=== PATIENT | male | born 1955 | race Hispanic/Latino ===

== ENCOUNTER → 2018-07-18 | Day surgery (SDC) | payer MEDICARE, OTHER ==
[~2018-07-18] MED LIST: ACIDOPHILUS100 MG PO; ALENDRONATE SOD70 MG PO; ALLOPURINOL100 MG PO; CENTRUM SILVER1 EAC3 PO; CEPHALEXIN500 MG PO; CITRACAL + D M1 EACH PO; DIALYVITE50000 UNIT PO; FENTANYL CITRATE/PF 100MCG/2 ML INJ ONE; FUROSEMIDE40 MG PO; HYOSCYAMINE SULFATE 0.5 MG/ML INJ ONE; KETAMINE HCL INJ 50 MG/ML 10 ML VIAL ONE; KLOR-CON 88 MEQ PO; MIDAZOLAM HCL 2 MG/2 ML VIAL ONE; PANTOPRAZOLE SO40 MG PO; PHENYLEPHRINE HCL 1% 10 MG/ML VIAL ONE; PROBIOTIC PO; PROPOFOL IV EMULSION 10 MG/ML 20 ML VIAL ONE; SPIRONOLACTONE25 MG PO; VITAMIN D-3 PO; Z.0.LIPITOR10 MG; Z.0.LOSARTAN POTAS10 PO; Z.4.AMLODIPINE-BEN1; [UNRECOGNIZED DRUG - OTHER] PO
--- OUTSIDE RECORDS SUMMARY | 2018-07-18 08:20 | XMS REPORT ---
Author Author [facility] Address Unknown Phone Unavailable Care Team Providers Care Grease Man Name Role Phone MICHELLE CHRISTIAN Unavailable Unavailable Problems This patient has no known problems. Allergies, Adverse Reactions, Alerts This patient has no known allergies or adverse reactions. Medications This patient has no known medications. Results Test Description Test Time Test Comments Text Results Atomic Results Result Comments SINUSES (PARANASAL)MIN 3VIEWS [place] [address] Patient Name: LASHAWN REEVES MR #: [id number] : 1955 Age/Sex: 61/M Req #: [id number] [facility] Physician: Ordered by: MICHELLE ROMERO, CHRISTIAN Álvarez MD Report #: [id number] Location: [facility] Room/Bed: Procedure: [id number] DX/SINUSES (PARANASAL)MIN 3VIEWS Exam Date: 06/05/17 Exam Time: 1425 REPORT STATUS: Signed PROCEDURE: X-RAY PARANASAL SINUSES, COMPLETE COMPARISON: None. INDICATIONS: SINUS CONGESTION FINDINGS: There is an air-fluid level in the left maxillary sinus. No expansile or destructive osseous lesions are seen. No evidence of fracture. CONCLUSION: Left maxillary sinusitis. Nguyen Davis D.O. Dictated by: Nguyen Davis D.O. on 06/05/2017 at 16:19 Electronically approved by: Nguyen Davis D.O. on 06/05/2017 at 16:19 Dictated By: NGUYEN DAVIS DO 18 Transcribed By: CHARANJIT on 06/05/171618 COPY TO: CHRISTIAN MARTINEZ CHEST 2 VIEWS [place] [address] Patient Name: LASHAWN REEVES MR #: [id number] : 1955 Age/Sex: 61/M Req #: [id number] Adm Physician: Ordered by: CHRISTIAN MARTINEZ MD, MD Report #: [id number] Location: [facility] Room/Bed: Procedure: [id number] DX/CHEST 2 VIEWS Exam Date: 05/04/17 Exam Time: 0850 REPORT STATUS: Signed PROCEDURE: Frontal and lateral views of the chest. COMPARISON: Portable chest 05/30/2016. INDICATIONS: BRONCHITIS, COUGH FINDINGS: Lines/tubes: None. Lungs: The lungs are well inflated and clear. There is no evidence of pneumonia or pulmonary edema. Pleura: There is no pleural effusion or pneumothorax. Heart and mediastinum: The heart and the mediastinum are normal. Bones: No acute bony abnormality. Degenerative changes of the thoracic spine. IMPRESSION: No acute radiographic abnormality. Dictated by: Arnulfo Cabral M.D. on 05/04/2017 at 9:22 Electronically approved by: Arnulfo Cabral M.D. on 05/04/2017 at 9:22 Dictated By: ARNULFO CABRAL MD 1 Transcribed By: CHARANJIT on 05/04/17921 COPY TO: CHRISTIAN MARTINEZ
--- OUTSIDE RECORDS SUMMARY | 2018-07-18 08:20 | XMS REPORT | Continuity of Care Document ---
Author Author Shadia mandeep [facility] Address Unknown Phone Unavailable Problems Problem Status Onset Date Classification Date Reported Comments Source M81.0 - AGE-RELATED OSTEOPOROSIS W/O C Active 12/12/2016 [facility] 786.51 Active 06/19/2014 [facility] PRECORDIAL PAIN Active [facility] Medications Medication Details Route Status Patient Instructions Ordering Provider Order Date Source Allergies, Adverse Reactions, Alerts Substance Category Reaction Severity Reaction type Status Date Reported Comments Source Immunizations Immunization Date Given Site Status Last Updated Comments Source Results Order Name Results Value Reference Range Date Interpretation Comments Source Bone Density DXA Dual Energy MA Bone Density DXA Dual Energy MA - Bone Density DXA Dual Energy MA MALE BONE DENSITY EVALUATION: 12/21/2016 CLINICAL DATA: M81.0 screening for osteoporosis. FINDINGS: Bone density evaluation was performed 12/21/2016 on the AP L1-L4 region of spine using a Hologic unit. The BMD average for the exam is 0.992 g/cm2. The T-score is -0.90 and the Z-score is -0.20. This matches the World Health Organization's criteria for normal bone density and places the patient within normal limits of fracture risk. An additional bone density evaluation was performed 12/21/2016 on the right femur neck using a Hologic unit. The BMD average for the exam is 0.929 g/cm2. The Z-score is 1.00. Complete risk assessment of this region was not determined. An additional bone density evaluation was performed 12/21/2016 on the right total femur area using a Hologic unit. The BMD average for the exam is 0.929 g/cm2. The T-score is -0.70 and the Z-score is -0.20. This matches the World Health Organization's criteria for normal bone density and places the patient within normal limits of fracture risk. An additional bone density evaluation was performed 12/21/2016 on the left femur neck using a Hologic unit. The BMD average for the exam is 0.937 g/cm2. The T- score is 0.10 and the Z-score is 1.00. This matches the World Health Organization's criteria for normal bone density and places the patient within normal limits of fracture risk. An additional bone density evaluation was performed 12/21/2016 on the left total femur area using a Hologic unit. The BMD average for the exam is 0.879 g/cm2. The T-score is -1.00 and the Z-score is -0.50. This matches the World Health Organization's criteria for normal bone density and places the patient within normal limits of fracture risk. IMPRESSION: BONE DENSITY WITHIN NORMAL LIMITS Patient is at normal risk for fracture. According to current 2013 ISCD guidelines, T-scores are preferred for evaluation of bone mineral density of males ages 50 and older. Professional services are provided by the [facility] Diagnostic Imaging. This exam was dictated and interpreted by [id number] at [facility]. Dmitry Giles M.D., jp/alon:12/22/2016 08:46:10 Bird Raiser: Shadia Munoz 12/21/2016 - - Read by: Dmitry Giles MD Dictated Date/time: 12/22/16 08:46 Electronically Signed by: Dmitry Giles MD 12/22/16 08:46 [facility] Cardiac SPECT multi studies NM Cardiac SPECT multi studies NM Cardiac SPECT study: TECHNIQUE: 33 millicuries of Technetium 99m Cardiolite were administered for the resting portion of the examination and 33 millicuries for the stress study utilizing a 2 day protocol. The patient was given a standard dose of 0.4 mg of IV Lexiscan for the stress portion of the study FINDINGS: The SPECT images demonstrate physiologic tracer activity. No significant fixed or reversible defect is evident. The left ventricle cavity is of normal size. CARDIAC PERFUSION STUDY: FINDINGS: The gated examination demonstrates no significant focal wall motion abnormality. The end-diastolic volume is estimated at 137 ml with end-systolic volume at 40 ml. The ejection fraction is calculated at 71% . IMPRESSION: No significant fixed or reversible defect is noted. SL:13 06/24/2014 - - Read by: Edmar Song MD Dictated Date/time: 06/25/14 11:07 Electronically Signed by: Edmar Song MD 06/25/14 11:09 FINAL REPORT [facility] Vital Signs Vital Sign Value Date Comments Source Height 167.64 cm 06/24/2014 [facility] Weight 150 06/24/2014 [facility] BMI Calculated 53.37 06/24/2014 [facility] Encounters Location Location Details Encounter Type Encounter Number Reason For Visit Attending Provider ADM Date DC Date Status Source [facility] Outpatient [id number] Pirce Roman 06/24/2014 06/25/2014 [facility] [id number] Hemalatha Patel 12/21/2016 12/22/2016 [facility] Procedures Procedure Code Date Perfomer Comments Source
--- OUTSIDE RECORDS SUMMARY | 2018-07-18 08:20 | XMS REPORT | Summary of Care ---
Author Author [facility] Outpatient Imaging [facility] [place] Address Unknown Phone Unavailable Encounter [facility] Eveline_alida([facility]) [id number] Date(s): 12/21/16 - 12/21/16 [facility] [place] [id number] [place] [address], [address] [place], [place] [id number]- [phone] Discharge Disposition: Home or Self Care Attending Physician: Hemalatha Patel MD Vital Signs No data available for this section Problem List No data available for this section Allergies, Adverse Reactions, Alerts Substance Reaction Severity Status NKDA Active Medications No data available for this section Results No data available for this section Immunizations No data available for this section Procedures No data available for this section Social History No data available for this section Assessment and Plan No data available for this section
--- OUTSIDE RECORDS SUMMARY | 2018-07-18 08:20 | XMS REPORT | Summary of Care ---
Author Organization Unknown Address Unknown Phone Unavailable Encounter [facility] Encntr_saekyle([facility]) [id number] Date(s): 06/24/14 - 06/24/14 [facility] [address] Discharge Disposition: Home Physician Attending: Price Roman MD Physician_Referring: Price Roman MD Reason for Visit 786.51 Vital Signs Most recent to 1 oldest [Reference Range]: Height 167.64 cm (06/24/14 9:24 AM) Weight 150 kg (06/24/14 9:24 AM) Body Mass Index 53.37 m2 (06/24/14 9:24 AM) Problem List No data available for this section Allergies, Adverse Reactions, Alerts Substance Reaction Severity Status NKDA Active Medications No data available for this section Medications Administered During Your Visit No data available for this section Immunizations No data available for this section
[2018-07-18 12:49] VITALS: BP 105/63
--- NOTE | 2018-07-18 14:35 | Operative Report ---
DATE OF PROCEDURE: July 18, 2018 REFERRING PHYSICIAN: Dr. Christian Martinez. PROCEDURE PERFORMED: Colonoscopy and polypectomy. INDICATIONS FOR COLONOSCOPY: Personal history of colon polyps. Surveillance colonoscopy. MEDICATION: Patient was done under MAC. Please see anesthesiologist's note. PROCEDURE: With the patient in the left lateral decubitus position, the flexible fiberoptic Olympus colonoscope was inserted into the rectum with ease and advanced all the way to the cecum. __Prep overall was suboptimal with retained stools in the colon. The scope was then withdrawn slowly, and whatever was visualized of the mucosa overlying the cecum, ascending colon and transverse grossly appeared to be within normal limits. The scope was then advanced with ease into the cecum.__ The scope was then withdrawn slowly, and no obvious obstructing or constricting lesions were noted in the cecum, ascending, transverse colon. One polyp was hot biopsied from the descending colon. The sigmoid and rectum grossly appeared to be within normal limits. The scope was then retroflexed into the distal rectum and small internal hemorrhoids were noted, none of which was actively bleeding. The scope was then straightened out. It was subsequently withdrawn. Patient tolerated the procedure well. IMPRESSION: 1. Suboptimal prep. 2. Descending colon polyp hot biopsied. 3. Internal hemorrhoids, none actively bleeding. PLAN: Follow up histology. Initiate high-fiber low-fat diet. Initiate high-fiber supplement. Patient might benefit from a followup colonoscopy in 2 to 3 years. Job#: [id number] EV cc:CHRISTIAN MARTINEZ MD
== END | disposition home or self-care (01) ==
LOC: OR 08:17
PROVIDERS: ATTEND Internal Medicine Gastroenterology
DX: Z09 Encounter for follow-up examination after completed treatment for conditions other than malignant neoplasm (principal); K63.5 Polyp of colon; K64.8 Other hemorrhoids; K59.00 Constipation, unspecified; K21.9 Gastro-esophageal reflux disease without esophagitis; J44.9 Chronic obstructive pulmonary disease, unspecified; I10 Essential (primary) hypertension; G47.33 Obstructive sleep apnea (adult) (pediatric); Z88.4 Allergy status to anesthetic agent; Z68.43 Body mass index [BMI] 50.0-59.9, adult; Z86.711 Personal history of pulmonary embolism
CPT/HCPCS: 45384; 88305; J1980; J2250; J2370; J2704; 45378

== ENCOUNTER → 2019-04-05 | Outpatient (CLI) | payer MEDICARE, OTHER ==
[~2019-04-05] MED LIST changes: -FENTANYL CITRATE/PF 100MCG/2 ML INJ ONE; -HYOSCYAMINE SULFATE 0.5 MG/ML INJ ONE; -KETAMINE HCL INJ 50 MG/ML 10 ML VIAL ONE; -MIDAZOLAM HCL 2 MG/2 ML VIAL ONE; -PHENYLEPHRINE HCL 1% 10 MG/ML VIAL ONE; -PROPOFOL IV EMULSION 10 MG/ML 20 ML VIAL ONE
--- NOTE | 2019-04-05 09:47 | Diagnostic Imaging Report ---
EXAMINATION: SP LUMBAR, COMPLETE MIN 4VW INDICATION: Back pain COMPARISON: None FINDINGS: No compression fracture. Vertebral body heights are well-maintained. Alignment is anatomic. Mild multilevel degenerative changes with disc space narrowing and small osteophyte formation. Mild lower lumbar spine facet arthropathy. Scattered atherosclerotic vascular calcifications. IMPRESSION: No compression fracture. Anatomic lumbar spine alignment. Mild multilevel degenerative changes. Signed by: Maria Elena Mejía MD on 04/05/2019 9:44 AM
== END ==
LOC: RAD 08:26
PROVIDERS: ATTEND Family Medicine
DX: M54.5 Low back pain (principal)
CPT/HCPCS: 72110

== ENCOUNTER → 2020-11-17 | Outpatient (CLI) | payer MEDICARE, OTHER | LOC: RAD 14:32 | PROVIDERS: ATTEND Family Medicine | DX: M25.511 Pain in right shoulder (principal) ==

== ENCOUNTER → 2020-11-23 | Outpatient (CLI) | payer MEDICARE, OTHER | LOC: RAD 08:35 | PROVIDERS: ATTEND Family Medicine | DX: M79.601 Pain in right arm (principal) | CPT/HCPCS: 93971 ==

== ENCOUNTER → 2020-11-27 | Outpatient (CLI) | payer MEDICARE, OTHER | LOC: CT 11:38 | PROVIDERS: ATTEND Family Medicine | DX: M25.511 Pain in right shoulder (principal) ==

== ENCOUNTER → 2022-12-07 | Outpatient (CLI) | payer MEDICARE ==
[~2022-12-07] MED LIST changes: +IOPAMIDOL 610MG/1ML 300 MG/ML VIAL IV ONE; +LIDOCAINE HCL 1% LOCAL INJ 20 ML VIAL ONE; +SODIUM CHLORIDE 0.9% 250ML 250 ML ONE
== END ==
LOC: DX 13:40
PROVIDERS: ATTEND Internal Medicine Infectious Disease
DX: L03.116 Cellulitis of left lower limb (principal); M86.172 Other acute osteomyelitis, left ankle and foot
CPT/HCPCS: 36573; 77001; J2001; J7050; Q9967

== ENCOUNTER 2022-12-22 23:20 | Emergency (ER) | payer MEDICARE ==
[~2022-12-22] VITALS: Ht 167.6 cm; Wt 129.7 kg
[~2022-12-22 23:20] MED LIST changes: -IOPAMIDOL 610MG/1ML 300 MG/ML VIAL IV ONE; -LIDOCAINE HCL 1% LOCAL INJ 20 ML VIAL ONE; -SODIUM CHLORIDE 0.9% 250ML 250 ML ONE
== END 2022-12-23 00:13 | disposition home or self-care (01) ==
LOC: ER 23:25
DX: Z45.2 Encounter for adjustment and management of vascular access device (principal); D64.9 Anemia, unspecified; K21.9 Gastro-esophageal reflux disease without esophagitis; M10.9 Gout, unspecified; Z86.718 Personal history of other venous thrombosis and embolism
CPT/HCPCS: 99282

== ENCOUNTER 2025-06-05 19:41 | Inpatient (IN) | payer MEDICARE ==
[~2025-06-05] VITALS: Ht 167.6 cm; Wt 94.8 kg
[~2025-06-05 19:41] MED LIST changes: +BENICAR20 MG PO; +FLOMAX0.4 MG PO; +LOSARTAN POTAS100 MG PO; +ONDANSETRON ODT4 MG PO
[2025-06-05 22:00] VITALS: BP 113/51; PULSE 71; RESP 16; TEMP 99; O2SAT 100
[2025-06-05] MEDS ORDERED: HYDROCODON-ACE1 EAC9 PO (22:09)
[2025-06-05] MEDS ORDERED: MULTI-VITAMIN1 EACH PO (22:10)
[2025-06-05] MEDS ORDERED: FOLIC ACID0.4 MG PO (22:10)
[2025-06-05] MEDS ORDERED: METOPROLOL SUCC25 MG PO (22:10)
[2025-06-05 22:37] VITALS: BP 113/51; PULSE 71; RESP 19; TEMP 99; O2SAT 99
[2025-06-05] MEDS ORDERED: POTASSIUM CHLORIDE 10MEQ EA PO PRN (23:30)
[2025-06-05] MEDS ORDERED: FUROSEMIDE 40 MG TAB PO PRN (23:30)
[2025-06-05] MEDS: VANCOMYCIN 1.25GM/250 ML (PEG) 250 ML IV SCH (23:59)
[2025-06-06] VITALS: BP 99/50; PULSE 63; RESP 17; TEMP 97.8; O2SAT 100
[2025-06-06] MEDS ORDERED: VANCOMYCIN HCL 1.25 GM VIAL IV ONE (00:02)
[2025-06-06] MEDS ORDERED: SODIUM CHLORIDE 0.9% 250ML 250 ML ONE (00:02)
[2025-06-06 00:11] LABS: BASOPHILS % 1.7 % (0.0-1.0); EOSINOPHILS % 2.3 % (0.0-6.0); LYMPHOCYTES % 31.3 % (18.0-39.1); MONOCYTES % 11.1 % (4.4-11.3); NEUTROPHILS % 53.3 % (38.7-80.0); RED CELL DISTRIBUTION WIDTH 14.3 % (11.7-14.4)
[2025-06-06] MEDS: CEFEPIME 2 GM in SODIUM CHLORIDE 0.9% 100 ML IV SCH ×2 (00:16→10:51)
[2025-06-06 00:24] LABS: EST GLOMERULAR FILTRATION RATE 95.0 ML/MIN (>=60)
[2025-06-06] MEDS: HYDROCODONE/APAP 10MG-325MG TAB PO PRN (00:59)
[2025-06-06] MEDS ORDERED: IOPAMIDOL 370 MG/ML 100 ML INFUS..BTL INJ ONE (01:19)
[2025-06-06 04:00] VITALS: BP 108/57; PULSE 57; RESP 18; TEMP 97.6; O2SAT 98
[2025-06-06] MEDS: SODIUM CHLORIDE 0.9% 100 ML ONE (05:14)
[2025-06-06] MEDS: PANTOPRAZOLE SOD 40 MG TABEC PO SCH (05:14)
[2025-06-06] MEDS: CEFEPIME 2 GM VIAL ONE (05:14)
[2025-06-06 08:00] VITALS: BP 127/56; PULSE 49; RESP 18; TEMP 97.7; O2SAT 100
[2025-06-06] MEDS: FOLIC ACID 1 MG TAB PO SCH (09:08)
[2025-06-06] MEDS: MULTIVITAMINS/MINERALS TAB PO SCH (09:08)
[2025-06-06] MEDS: OLMESARTAN 20 MG TAB PO SCH (09:10)
[2025-06-06] MEDS: MUPIROCIN 2% OINT 22 GM TUBE TOP SCH (09:10)
[2025-06-06] MEDS ORDERED: VANCOMYCIN 1.25GM/250 ML (PEG) 250 ML IV SCH (12:00)
[2025-06-06] MEDS: METOPROLOL SUCCINATE 25 MG TAB XL PO SCH (14:05)
[2025-06-06] MEDS: VANCOMYCIN HCL 1.25 GM in SODIUM CHLORIDE 0.9% 250ML 250 ML IV SCH (14:05)
[2025-06-06 16:19] VITALS: BP 151/58; PULSE 65; RESP 18; TEMP 98.1; O2SAT 100
[2025-06-06 17:25] LABS: INR 1.33
[2025-06-06 20:00] VITALS: BP 125/69; PULSE 62; RESP 19; TEMP 97.9; O2SAT 100
[2025-06-06 21:00] VITALS: BP 125/69; PULSE 62; RESP 17; TEMP 97.9; O2SAT 100
[2025-06-06] MEDS: TAMSULOSIN HCL 0.4 MG CAP PO SCH (21:00)
[2025-06-07] VITALS (8 sets, daily range): BP systolic 117–135; BP diastolic 67–75; PULSE 53–95; RESP 17–20; TEMP 97.6–98.9; O2SAT 96–100
[2025-06-08] VITALS (7 sets, daily range): BP systolic 127–155; BP diastolic 64–79; PULSE 56–104; RESP 16–19; TEMP 98.1–99.1; O2SAT 100
[2025-06-09] VITALS: BP 135/67; PULSE 58; RESP 18; TEMP 97.8; O2SAT 100
[2025-06-09 04:00] VITALS: BP 123/66; PULSE 62; RESP 15; TEMP 97.8; O2SAT 100
[2025-06-09 08:00] VITALS: BP 121/78; PULSE 69; RESP 18; TEMP 97.4; O2SAT 100
[2025-06-09] MEDS: Vancomycin IV 1 GM in SODIUM CHLORIDE 0.9% 250ML 250 ML IV SCH (09:00)
[2025-06-09 10:38] VITALS: BP 121/78; PULSE 69; RESP 18; TEMP 97.4; O2SAT 100
[2025-06-09] MEDS ORDERED: VANCOMYCIN HCL1 GM IV (11:49)
[2025-06-09 12:00] VITALS: BP 125/79; PULSE 81; RESP 17; TEMP 99.1; O2SAT 99
[2025-06-09 17:31] VITALS: BP 118/77; PULSE 112; RESP 20; TEMP 97.8; O2SAT 100
== END 2025-06-09 19:05 | disposition home health service (06) | DRG 560 ==
LOC: IMCU 21:38 → MED/SURG 06-06 13:30
PROVIDERS: ADMIT Internal Medicine; ATTEND Internal Medicine
PROC: 02HV33Z Insertion of Infusion Device into Superior Vena Cava, Percutaneous Approach (ICD-10-PCS; principal; 2025-06-06)
DX: T84.54XA Infection and inflammatory reaction due to internal left knee prosthesis, initial encounter (principal); F11.20 Opioid dependence, uncomplicated; L02.416 Cutaneous abscess of left lower limb; M86.60 Other chronic osteomyelitis, unspecified site; T84.033A Mechanical loosening of internal left knee prosthetic joint, initial encounter; I10 Essential (primary) hypertension; I71.20 Thoracic aortic aneurysm, without rupture, unspecified; K21.9 Gastro-esophageal reflux disease without esophagitis; D64.9 Anemia, unspecified; E66.01 Morbid (severe) obesity due to excess calories; Z68.33 Body mass index [BMI] 33.0-33.9, adult; Y83.1 Surgical operation with implant of artificial internal device as the cause of abnormal reaction of the patient, or of later complication, without mention of misadventure at the time of the procedure; Z79.2 Long term (current) use of antibiotics; Z86.14 Personal history of Methicillin resistant Staphylococcus aureus infection
CPT/HCPCS: 36415; 36569; 71045; 80048; 80202; 85025; 85610; 85730; 86140; 86850; 86900; 87040; 87071; 87205; J0692; J2470; J7050; Q9967